=== PATIENT | female | born 1970 | race Caucasian/White ===

== ENCOUNTER 2023-01-18 16:23 | Emergency (ER) | payer BC ==
[~2023-01-18] VITALS: Ht 175.3 cm; Wt 100.0 kg
[2023-01-18 17:14] VITALS: BP 171/66
== END 2023-01-18 18:55 | disposition home or self-care (01) ==
LOC: ER 16:24
DX: M25.561 Pain in right knee (principal); Z90.710 Acquired absence of both cervix and uterus; Z88.5 Allergy status to narcotic agent; X50.1XXA Overexertion from prolonged static or awkward postures, initial encounter; Y93.89 Activity, other specified; Y92.89 Other specified places as the place of occurrence of the external cause; Y99.8 Other external cause status
CPT/HCPCS: 73564; 99284